=== PATIENT | female | born 1985 | race Caucasian/White ===

== ENCOUNTER 2016-11-11 05:00 | Emergency (ER) | payer OTHER ==
[2016-11-11] MEDS ORDERED: AMOX/CLAV 875 MG/125 MG TABLET PO STA (05:40)
[2016-11-11] MEDS ORDERED: ALBUTEROL 8 GM INHALER INH STA (05:40)
[2016-11-11] MEDS ORDERED: predniSONE 20 MG TABLET PO STA (05:41)
[2016-11-11] MEDS ORDERED: predniSONE 20 MG TABLET ONE (05:44)
[2016-11-11] MEDS ORDERED: AMOX/CLAV 875 MG/125 MG TABLET PO ONE (05:44)
[2016-11-11] MEDS ORDERED: ALBUTEROL 8 GM INHALER INH ONE (05:48)
== END 2016-11-11 06:02 | disposition home or self-care (01) ==
DX: J40 Bronchitis, not specified as acute or chronic (principal); J01.10 Acute frontal sinusitis, unspecified
CPT/HCPCS: 94640; 99283; A9270; J7512

== ENCOUNTER 2017-01-08 12:52 | Outpatient (CLI) | payer OTHER | END 2017-01-08 12:53 | disposition home or self-care (01) | DX: M51.36 Other intervertebral disc degeneration, lumbar region (principal); M47.816 Spondylosis without myelopathy or radiculopathy, lumbar region; M51.37 Other intervertebral disc degeneration, lumbosacral region; M43.17 Spondylolisthesis, lumbosacral region ==